=== PATIENT | female | born 1970 | race Caucasian/White ===

== ENCOUNTER 2025-03-29 06:51 | Outpatient (CLI) | payer BC, SELFPAY ==
--- NOTE | ~2025-03-29 | XR_ITS ---
XR finger 5th LT min 2V Ordering provider: Elba Izquierdo MD History: . FELL X 5 DYS AGO, INJURY TO LT 5TH FINGER . Comparison: None. FINDINGS: BONES: Avulsion fracture at the base of the middle phalanx of the little finger seen anteriorly. No o ther fractures seen. JOINT SPACES: Normal. SOFT TISSUES: Normal. IMPRESSION: Avulsion fracture at the base of the middle phalanx anteriorly. Reviewed, dictated and finalized at location A.
== END 2025-03-29 06:52 | disposition home or self-care (01) ==
PROVIDERS: PCP Urology; Visit Provider Plastic Surgery
DX: S62.627A Displaced fracture of middle phalanx of left little finger, initial encounter for closed fracture (principal); X58.XXXA Exposure to other specified factors, initial encounter
CPT/HCPCS: 73140

== ENCOUNTER 2025-09-08 22:26 | Emergency (ER) | payer BC, SELFPAY ==
--- NOTE | ~2025-09-08 | XR_ITS ---
Examination: XR ankle LT min 3V Clinical History: fall Comparison: None Technique: 3 views left ankle Findings/impression: 1. Fracture lateral malleolus at level of ankle mortise. 2. Avulsion fracture medial malleolus. 3. Ankle mortise appears preserved. 4. Calcaneal enthesophyte plantar fascia insertion site. Reviewed, dictated and finalized at location R. ECTION LIEUTENANT
--- OUTSIDE RECORDS SUMMARY | 2025-09-08 22:29 | XMS_ITS | Clinical Summary ---
Author Organization [facility] al Address [address] [place] [address] Care Team Providers Care Scientific Investigator Name Role Phone Cely Mcgraw MD Primary Care Provid er Allergies Active Allergy Reactions Criticality Noted Date Comments Doxycycline Rash,Urticaria Medium 12/21/2018 Latex Itching Low 07/16/2010 Medications FLUoxetine (PROzac) 20 mg tablet 3 Active albuterol HFA (PROVENTIL HFA,VENTOLIN HFA,PROAIR HFA) 90 mcg/actuation inhaler Inhale 2 puffs every 6 (six) hours as needed 9 Active triamcinolone (KENALOG) 0.1 % ointment APPLY TOPICALLY TO THE AFFECTED AREA TWICE DAILY 3 Active phentermine (ADIPEX-P) 37.5 mg tablet 0 3 Active Active Problems Problem Noted Date Diagnosed Date NIYA (obstructive sleep apnea) 03/12/2023 Perimenopausal 03/12/2023 Dental infection 11/06/2021 Elevated BP without diagnosis of hypertension Mild episode of recurrent major depressive disor deshawn 08/11/2019 Anxiety state 04/14/2017 Obesity (BMI 30.0-34.9) 04/14/2017 Overview (03/12/2023): Dentofacial anomalies, including malocclusion Immunizations Immunization Administration Dates Next Due Influenza, Quadrivalent, Spl it, Preservative Free, Intramuscular 08/19/2020,08/11/2019 Influenza, Trivalent, Preservative Free, Intramu scular 08/09/2016 Surgical History Surgery Date Site/Laterality Comments RI LAPS ABD PRTM&OMENTUM DX W/WO SPEC BR/WA SPX Laparoscopy (Diagnostic) - (Added by TW Conv) RI TONSILLECTOMY & ADENOIDEC LORENZO <AGE 12 Tonsillectomy With Adenoidectomy - (Added by TW Conv) MANDIBLE SURGERY Jaw Surgery - (Added by TW Conv) Social History Tobacco Use Types Packs/Day Years Used Date Smoking Tobacco: Never Personal Safety Answer Date Recorded Getting School Help Needed Not on file 12/17 Comments Unknown Sex and Gender Information Value Date Recorded Sex Assigned at Not on file Legal Sex Female 4:35 PM [employer] Gender Identity Not on file Sexual Orientation Not on file Last Filed Vital Signs Vital Sign Reading Time Taken Comments Blood Pressure 126/84 03/12/2023 7:05 AM CDT Pulse 98 03/12/2023 7:05 AM CDT Temperature 36.6 C (97.8 F) 03/12/2023 7:05 AM CDT Respiratory Rate 16 03/12/2023 7:05 AM CDT Oxygen Saturation 97% 03/12/2023 7:05 AM CDT Inhaled Oxygen Concentration - - Weight 117.9 kg (260 lb) 03/12/2023 7:05 AM CDT Height 167.7 cm (5' 6.02) 03/12/2023 7:05 AM CD T Body Mass Index 41.93 03/12/2023 7:05 AM CDT Plan of Treatment Health Maintenance Due Date Last Done Comments Cervical Cancer Screening 1970 Colon Cancer Screening-Colonoscopy 1970 Depression Screening 1970 Hepatitis C Screening 1970 DTaP/Tdap/Td Vaccine (1 - Tdap) 1981 Hepatitis B Screening 1988 Regular Well Visit/Exam 18-64 1988 Breast Cancer Screening-Mammogram 08/10/2018 08/10/2017, 06/19/2016, 11/09/2014, Additional history exists Zoster Vaccine (1 of 2) 2020 Influenza Vaccine (#1) 2025 0, 08/11/2019, 08/09/2016 Pneumococcal vaccine <65 Aged Out No longer eligible based on patient's age to complete this topic Procedures Procedure Name Priority Date/Time Associated Diagnosis Comments MAMMOGRAPHY, TOMOGRAPHY, BILATERAL Routine 08/10/2017 3:16 PM [employer] NURSE from Last 3 Months or Most Recently Relevant to Health Maintenance Results * MAMMOGRAPHY, TOMOGRAPHY, BILATERAL (08/10/2017 3:16 PM [employer] NURSE) Anatomical Region Laterality Modality Bilateral Mammography 08/10/2017 3:16 PM [employer] NURSE Narrative 08/12/2017 6:28 PM [employer] NURSE KENA ALSTON M.D. FINAL REPORT ACC# Date Time Exam [id number] Aug 10, 2017 09:16:00 [facility] [id number] Bilat scr w/qamar Technologist(s): Rosaline Pierre; ; EXAMINATION: Mammogram Technique: Bilateral Digital Breast Tomosynthesis, Bilateral C-view 2D Screening mammogram. Views obtained: bilateral craniocaudal and bilateral mediolateral oblique. Computer Aided Detection was performed. Mammogram Findings: The present examination has been compared to prior imaging studies performed at [facility] on 09/29/2013, and at [facility] [address] on 11/09/2014 and 06/19/2016. The breasts are almost entirely fatty. There is no suspicious abnormality in either breast. IMPRESSION: Annual screening mammography is recommended. OVERALL FINAL ASSESSMENT: BI-RADS CATEGORY 1: Negative. Requested By: SAMY VELASCO M.D. Dictated By: KENA ALSTON M.D. on Aug 12 2017 12:28P This document has been electronically signed by: KENA ALSTON M.D. on Aug 12 2017 12:28P [id number] ALSTON M.D. FINAL REPORT Attending: SAMY VELASCO Requesting: SAMY VELASCO Requesting Fax: Attending Fax: Attending ID: [id number] Requesting ID: [id number] Report To 1 ID: [id number] Report To 1 Name: , Report To 1 FAX: NextGen Order #: Procedure Note Miscellaneous, Not In File - 08/12/2017 KENA ALSTON M.D. FINAL REPORT ACC# Date Time Exam [id number] Aug 10, 2017 09:16:00 [facility] [id number] Bilat scr w/qamar Technologist(s): Rosaline Pierre; ; EXAMINATION: Mammogram Technique: Bilateral Digital Breast Tomosynthesis, Bilateral C-view 2D Screening mammogram. Views obtained: bilateral craniocaudal and bilateral mediolateral oblique. Computer Aided Detection was performed. Mammogram Findings: The present examination has been compared to prior imaging studies performed at [facility] on 09/29/2013, and at [facility] [address] on 11/09/2014 and 06/19/2016. The breasts are almost entirely fatty. There is no suspicious abnormality in either breast. IMPRESSION: Annual screening mammography is recommended. OVERALL FINAL ASSESSMENT: BI-RADS CATEGORY 1: Negative. Requested By: SAMY VELASCO M.D. Dictated By: KENA ALSTON M.D. on Aug 12 2017 12:28P This document has been electronically signed by: KENA ALSTON M.D. on Aug 12 2017 12:28P [id number] ALSTON M.D. FINAL REPORT Attending: SAMY VELASCO Requesting: SAMY VELASCO Requesting Fax: Attending Fax: Attending ID: [id number] Requesting ID: [id number] Report To 1 ID: [id number] Report To 1 Name: , Report To 1 FAX: NextGen Order #: Samy Velasco MD IMG MAMMO PROCEDURES Final Result from Last 3 Months or Most Recently Relevant to Health Maintenance Insurance [facility] CHO[facility] PL[facility] Care Teams Scientific Investigator Relationship Specialty Start Date End Date Cely Mcgraw MD [address] [facility] [address] [place] [address] PCP - General Internal Medicine 03/12/23
--- OUTSIDE RECORDS SUMMARY | 2025-09-08 22:29 | XMS_ITS | Clinical Summary ---
Author Organization [facility] Address [address] [place] [address] Care Team Providers Care Twisting Frame Changer Name Role Phone Unavailable Primary Care Provider Unavailabl e Source Comments [facility],non-owned Affiliates and Associated Physician Practices is amultiple site organization consisting of ambulatory clinics and hospital sitesin [place], [place], [place] and [place]. This disclosure is being madepursuant to the Care Everywhere program and may not contain all information available regarding this patient. Last updated 18.[facility] BzzAgent Allergies Active Allergy Reactions Criticality Noted Date Comments Doxycycline Urticaria Medium 12/21/2018 Medications * Be aware that medications may not be up to date on this document. Alwaysverify current medications with the patient. albuterol HFA (PROVENTIL;VENT RADHA;PROAIR) 108 (90 BASE) MCG/ACT inhaler Inhale 2 puffs by mouth every 6 hours as needed for Shortness of Breath or Cough 1 Inhaler 9 Active benzonatate (TESSALON) 200 MG capsule Take 1 capsule by mouth 3 times daily as needed for Cough 30 capsule 9 Active Social History Tobacco Use Types Packs/Day Years Used Date Smoking Tobacco: Never Assessed Comments No Sex and Gender Information Value Date Recorded Sex Assigned at Not on file Legal Sex Female 11:20 AM CDT Gender Identity Not on file Sexual Orientation Not on file Last Filed Vital Signs Vital Sign Reading Time Taken Comments Blood Pressure 110/78 12/21/2018 3:42 PM CDT Pulse - - Temperature 37.4 C (99.3 F) 12/21/2018 3:42 PM CDT Respiratory Rate 18 12/21/2018 3:42 PM CDT Oxygen Saturation 95% 12/21/2018 3:42 PM CDT Inhaled Oxygen Concentration - - Weight 88.5 kg (195 lb) 12/21/2018 3:42 PM CDT Height 170.2 cm (5' 7) 12/21/2018 3:42 PM CDT Body Mass Index 30.54 12/21/2018 3:42 PM CDT Plan of Treatment Health Maintenance Due Date Last Done Comments COLOGUARD (AGES 45-75) - COL ON CA SCREENING 1970 COLON MONITORING 1970 COLONOSCOPY - COLON CA SCREENING 1970 CT COLONOGRAPHY - COLON CA SCREENING 1970 Colorectal Cancer Screening 1970 FIT - COLON CA SCREENING 1970 FLEX SIG - COLON CA SCREENING 1970 LIPID TESTING 1970 MAMMOGRAM 1970 HIV SCREENING 1985 HEPATITIS C SCREENING 11/19/1988 DTAP/TDAP/TD VACCINES (1 - Tdap) 1989 HEPATITIS B VACCINE (1 of 3 - 19+ 3-dose series) 1989 SCREENING FOR DIABETES 12/21/2018 PNEUMOCOCCAL VACCINE 50+ (1 of 1 - PCV) 2020 ZOSTER VACCINE (1 of 2) 2020 DEPRESSION SCREENING 10/04/2024 COVID-19 VACCINE (1 - 2024-2 6 season) 2025 INFLUENZA VACCINE (#1) 2025 HIB VACCINE Aged Out No longer eligi ble based on patient's age to complete this topic HPV VACCINE Aged Out No longer eligi ble based on patient's age to complete this topic MENINGOCOCCAL (Group B) VACC INE SHARED DECISION-MAKING Aged Out No longer eligibl e based on patient's age to complete this topic MENINGOCOCCAL GROUPS A/C/Y/W VACCINE Aged Out No longer eligible b ased on patient's age to complete [place] [address] VASQUEZ
--- OUTSIDE RECORDS SUMMARY | 2025-09-08 22:30 | XMS_ITS | Patient Health Record ---
Author Organization [facility] Address [address] [place], [place] [id number] Care Team Providers Care Asp Net C Developer Name Role Phone Dave Alexander Unavailable Unavailable Reason For Referral No Information Social History Social History Additional Details Category Social Info Options Details Migrated Social History Migrated Social History Smoking Status : Never smoked , History of tobacco use : , Alcohol intake : Plan Of Treatment No Information Insurance Providers Payer Name Payer Address Payer Phone Subscriber Number Group Number Insured Name Patient Relationship to Insured Coverage Start Date Coverage End Date R [place] / [employer] [address] [facility] Jackman [id number] KRYSTYNA CAO Self - patient is the insured
[2025-09-08 22:39] VITALS: BP 150/59; PULSE 79; RESP 18; TEMP 36.6; O2SAT 99
[2025-09-09 02:15] VITALS: BP 130/70; PULSE 74; RESP 18; TEMP 36.7; O2SAT 100
--- NOTE | 2025-09-09 02:44 | ED_ITS ---
HPI - Extremity Injury (Lower) General Chief Complaint: Extremity Injury, Lower Stated Complaint: L ankle pain from fall Time Seen by Provider: 09/09/25 02:36 Source: patient and family Mode of arrival: ambulatory Limitations: no limitations History of Present Illness HPI Narrative: Patient is a 54-year-old female presents to the emergency department complaining of left ankle pain after fall that occurred Wednesday morning. Denies hitting head having loss of consciousness. No she is only having pain to her left leg at the ankle. Patient notes that she slipped on ice and her left leg behind her she is unsure how she hurt her ankle but been having a lot of pain with any weight-bearing. Denies any focal weakness or numbness. Admits to bruising. Has crutches at home from her son having an injury and has been using them. Took an Aleve for the pain. Notes that it is overall well controlled as long she is not bearing any weight on it. Related Data Allergies Allergy/AdvReac Type Severity Reaction Status Date / Time doxycycline Allergy Intermediate Hives Verified 09/09/25 02:18 Review of Systems Review of Systems: A 10 system review of systems was completed on the patient and is negative except for what is stated in the HPI. Nursing and ancillary documentation was reviewed. [facility] Social History Social History Smoking status: Never smoker Exam Narrative: CONST: No acute distress. Well nourished. HENMT: Head is normocephalic and atraumatic. EYES: No scleral icterus. NECK: No meningeal signs. RESP: Able to speak in full sentences. Normal respiratory effort. CARDIO: 2+ DP pulses bilaterally. GI: Nondistended. SKIN: No rashes or lesions noted on exposed skin. NEURO: Oriented x3. Moves all extremities. EXTREM/MSK/BACK: No pedal edema. Bruising and swelling and tenderness to palpation of the left ankle lateral malleolus. Sensation intact to light touch throughout the left lower extremity. No overt laxity of the left ankle. Clark test is negative. Compartments are soft throughout the left leg. Patient is able to wiggle all her toes. PSYCH: Normal affect. Course Vital Signs Vital signs: Vital Signs Temperature 97.9 F 09/08/25 22:39 Pulse Rate 79 09/08/25 22:39 Respiratory Rate 18 09/08/25 22:39 Blood Pressure 150/59 H 09/08/25 22:39 Pulse Oximetry 99 09/08/25 22:39 Oxygen Delivery Room Air 09/08/25 22:39 Temperature 98.0 F 09/09/25 02:15 Pulse Rate 73 09/09/25 03:27 Respiratory Rate 18 09/09/25 03:27 Blood Pressure 158/83 H 09/09/25 03:27 Pulse Oximetry 98 09/09/25 03:27 Oxygen Delivery Room Air 09/09/25 02:15 Procedures Orthopedic Splinting/Casting Injury #1: Splinting/Casting Date: 09/09/25 Splinting/Casting Time: 03:00 Side: left Lower Extremity Injury Location: ankle Lower Extremity Immobilizer: posterior splint and stirrup splint Splint: prefabricated Pre-Procedure Neuro Vascular Exam: normal Post-Procedure Neuro Vascular Exam: normal Other Orthopedic Equipment: crutches MDM MDM Narrative Medical decision making narrative: Patient presents with the above complaint. Initial vitals are remarkable for no significant abnormalities. Physical examination as noted above. Plan discussed: Left ankle x-ray, ice pack, extremity elevation, continuous cardiac monitoring, continuous pulse oximetry. Left ankle x-ray preliminary findings radiology interpretation is lateral malleolus fracture. Possible avulsion fracture of the medial malleolus. Patient was reassessed at the bedside. No changes in physical exam. Patient is in no acute distress. Patient splinted with a posterior short-leg and stirrup, patient has crutches, capillary refill is less than 2 seconds in all distal digits, sensation intact in all distal digits, patient is able to wiggle all her toes.The patient has remained stable throughout the entire ED visit. Counseled patient regarding diagnostic results and potential diagnosis. Anticipatory guidance provided. Patient instructed to follow up with Podiatry in 5 days. Patient counseled on: false reassurance from an emergency department evaluation; no current evidence of a medical emergency; return immediately for any new, recurrent, worsening, concerning, or refractory symptoms. Medications discussed with patient. Additional verbal and printed discharge instructions were given and discussed with the patient. Patient verbally acknowledges understanding of condition and discharge instructions. All questions were answered to the patient's satisfaction. Patient is in agreement with the plan of care. The patient is stable for discharge and was discharged without incident. Differential Diagnosis Differential Diagnosis: Fracture, contusion, sprain, strain, other acute traumatic injuries. Discharge Plan Discharge Clinical Impression: Ankle fracture Qualifiers: Encounter type: initial encounter Fracture type: closed Laterality: left Qualified Code(s): S82.892A - Other fracture of left lower leg, initial encounter for closed fracture Patient Disposition: Home Condition: Stable Instructions: Antibiotic Form, Ankle Fracture (ED), Crutch Instructions (ED), Splint Care (ED), P.R.I.C.E. Treatment (ED), Non Weight Bearing Activity (ED) Additional Instructions: Follow-up with Podiatry in 5 days, take Tylenol or Motrin as needed for any discomfort, keep your left leg elevated above your heart to help with swelling, use the crutches as you have been and nonweightbearing on your left leg. Patient Language: [place] Citizen Follow-up/Referrals: Brandon Cabral Jr., NOEL [Physician, Podiatry] - 09/13/25 Tayler Aguilar DPM [Physician, Podiatry] - 09/13/25 Cely Mcgraw MD [Primary Care Provider, Urology] Time of Disposition: 02:51
[2025-09-09 03:27] VITALS: BP 158/83; PULSE 73; RESP 18; O2SAT 98
== END 2025-09-09 03:36 | disposition home or self-care (01) ==
LOC: ANHED 09-09 02:55
PROVIDERS: Emergency Provider Student in an Organized Health Care Education/Training Program; PCP Urology
DX: S82.842A Displaced bimalleolar fracture of left lower leg, initial encounter for closed fracture (principal); W00.0XXA Fall on same level due to ice and snow, initial encounter
CPT/HCPCS: 29515; 73610; 99284

== ENCOUNTER 2025-09-13 21:28 | Emergency (ER) | payer SELFPAY ==
--- NOTE | ~2025-09-13 | XR_ITS ---
EXAMINATION: XR tibia fibula LT 2V DATE: 09/14/2025 01:35 INDICATION: Leg pain TECHNIQUE: September 08 were obtained. COMPARISON: None. FINDINGS: Mildly displaced spiral fracture distal fibula and possible avulsion fracture medial malleolus unchanged; there is increased lateral subluxation of the talus with the tibiotalar articulation on the frontal view measuring approximate 8 mm. No new fracture seen. IMPRESSION: 1. Tibiotalar subluxation with approximately 8 mm of talar displacement. 2. Distal fibular fracture and possible medial malleolus fracture not clearly changed. Reviewed, dictated and finalized at location A. UP EDITOR IMPRESSION: 1. Tibiotalar subluxation with approximately 8 mm of talar displacement. 2. Distal fibular fracture and possible medial malleolus fracture not clearly c hanged.
--- OUTSIDE RECORDS SUMMARY | 2025-09-13 21:30 | XMS_ITS | Patient Health Record ---
Author Organization [facility] Address [address] [place], [place] [id number] Care Team Providers Care Electronic Imaging System Operator Name Role Phone Dave Alexander Unavailable Unavailable [...] Coverage Start Date Coverage End Date R [place] / [employer] [address] [facility] Jackman [id number] KRYSTYNA CAO Self - patient is the insured
--- OUTSIDE RECORDS SUMMARY | 2025-09-13 21:30 | XMS_ITS | Clinical Summary ---
Author Organization [facility] Address [address] [place] [address] Phone Care Team Providers Care Emergency Medical Service Manager Name Role Phone Cely Mcgraw MD Primary Care Provid er Allergies Active Allergy Reactions Criticality Noted Date Comments Doxycycline Rash Medium 12/21/2018 Latex Itching Low 07/16/2010 Medications cpap medical deviceIndicati ons:NIYA (obstructive sleep apnea) APAP @ 5-15 cwp with heated humidifier. Length of need:99 months; fit for mask with headgear. Mask/Headgear as needed every 3- 6 months; 1 cushion as needed every 3-6 months; Tubing heated, 1 as needed every 6 months, water chamber 1 as needed every 6 months, chin strap 1 as needed every 6 months, filters disposable, 2 as needed every 3- 6 months, filters reusable 1 every 6 months. 1 Each 2 Active CPAP / BIPAP suppliesIndica tions:NIYA on CPAP CPAP Mask fit to comfort, Refit if needed, All associated CPAP Supplies as needed Length of need: 99 months DME [facility] 1 Each 3 Active CPAP / BIPAP suppliesIndica tions:NIYA on CPAP Length of need: 99 months Mask Type: nasal pillow with headgear every 6 months, mask only every 3 months,1 cushions per month. Tubing: heated 1 every 3 months, water chamber 1 every 6 months, chin strap 1 every 6 months, filters disposable 2 per month, filters reusable 1 per 6 months. 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 Take with vitamin C to increase absorption. 30 Tablet 2 5 Active semaglutide, weight loss, (WEGOVY) 1 mg/0.5 mL Pen Injector Inject 0.5 mL (1 mg) by subcutaneous injection every 7 days. 2 mL 2 5 Active FLUoxetine (PROzac) 20 mg tabletIndicati ons:Anxiety state,Mild episode of recurrent major depressive disorder Take 2 Tablets (40 mg) by mouth daily. 180 Tablet 5 Active hydrOXYzine HCL (ATARAX) 25 mg tabletIndicati ons:Anxiety state Take 1 Tablet (25 mg) by mouth 2 times daily as needed for Anxiety. 30 Tablet 5 Active FLUoxetine (PROzac) 20 mg tabletIndicati ons:Anxiety state,Mild episode of recurrent major depressive disorder Take 1 Tablet (20 mg) by mouth daily. 30 Tablet 3 5 025 Discontin ued(Reord er) Active Problems Patient Care Coordination No te Formatting of this note migh t be different from the original. DME: [facility] FOR CPAP: Airsense 10;sd card Problem Noted Date Diagnosed Date FOSTER (dyspnea on exertion) 08/03/2024 Exertional chest pain 08/03/2024 Fam hx-ischem heart disease 08/03/2024 Dental infection 11/06/2021 Elevated BP without diagnosis of hypertension Mild episode of recurrent major depressive disor deshawn 08/11/2019 Anxiety state 04/14/2017 Dentofacial anomalies, including malocclusion NIYA (obstructive sleep apnea) Resolved Problems Problem Noted Date Diagnosed Date Resolved Date Acute appendicitis with localized peritonitis 06/06/20 18 08/11/2019 Obesity (BMI 30.0-34.9) 04/14/201705/05 GERD without esophagitis 04/14/201705/2019 Encounters Date Type Department Care Team Description 08/28/2025 Orders Only [facility] Internal Medicine [facility] [address] [facility] [address] [address] Cely Mcgraw MD Anxiety state; Mild episode of recurrent major depressive disorder 08/21/2025 External Device Data [facility] ABSTRACTION Provider, Abstract 08/08/2025 External Device Data [facility] ABSTRACTION Provider, Abstract 08/01/2025 External Device Data [facility] ABSTRACTION Provider, Abstract 07/17/2025 External Device Data ST[facility] ABSTRACTION Provider, Abstract from Last 3 Months Immunizations Immunization Administration Dates Next Due (ADACEL/BOOSTRIX)(10 YR UP) TDAP VACCINE, 0.5ML, IM 05/10/2024 INFLUENZA VACCINE QUADRIVALENT 6 MOS UP PF IM ,08/11/2019 Influenza Seasonal Unspecified Formulation PF IM 08/09/2016 Family History Medical History Relation Name Comments COPD Father Simon Leos Emphysema Father Simon Leos Other Father Simon Leos NIYA; used BPAP Respiratory Disease Father Simon Leos smoker Heart Disease Maternal Grandfather Fan [place] Hypertension Maternal Grandfather Fan [place] Heart Disease Maternal Grandmother Leonela [place] Hypertension Maternal Grandmother Leonela [place] Cancer Mother Grace Lucio lung Depression Mother Grace Lucio Hypertension Mother Grace Lucio Breast Cancer Paternal Grandmother Gayathri Leos Colon Cancer Neg Hx Diabetes Neg Hx Relation Name Status Comments Father Simon Leos Maternal Grandfather Fan [place] Maternal Grandmother Leonela [place] Mother Grace Lucio Alive Paternal Grandmother Gayathri Leos Social History Tobacco Use Types Packs/Day Years Used Date Smoking Tobacco: Former Cigarettes 0 Q uit: 05/21/1986 Smokeless Tobacco: Never Tobacco Cessation:Counseling Given: Not Answered Alcohol Use Standard Drinks/Week Comments Yes 0 (1 standard drink = 0.6 oz pur e alcohol) SOCIALLY Feeling Safe Answer Date Recorded Are you in a relationship wi th someone who hurts you emotionally and/or physically? No 08/29/2024 Comments No Sex and Gender Information Value Date Recorded Sex Assigned at Not on file Legal Sex Female 5:55 AM APPEALS AND GENERALIST CLERK Gender Identity Not on file Sexual Orientation Not on file Last Filed Vital Signs Vital Sign Reading Time Taken Comments Blood Pressure 132/70 05/30/2025 3:37 PM CDT Pulse 85 05/30/2025 3:37 PM CDT Temperature 36.6 C (97.8 F) 05/30/2025 3:37 PM CDT Respiratory Rate 16 08/29/2024 10:09 AM APPEALS AND GENERALIST CLERK Oxygen Saturation 99% 05/30/2025 3:37 PM CDT Inhaled Oxygen Concentration - - Weight 112.9 kg (249 lb) 05/30/2025 3:37 PM CDT Height 170.2 cm (5' 7) 05/30/2025 3:37 PM CDT Body Mass Index 39 05/30/2025 3:37 PM CDT Plan of Treatment Health Maintenance Due Date Last Done Comments HEPATITIS B VACCINES (1 of 3 - 19+ 3-dose series) 1989 HPV/Cotest (21-29) 1991 CERVICAL CANCER SCREENING 2000 HPV/Cotest (30-65) 2000 PAP SMEAR 2000 FIT-DNA Q 3 years 2015 FIT/FOBT Q 1 year 2015 Flex Sig/CT Colonography Q 5 years 2015 ZOSTER VACCINE (1 of 2) 2020 INFLUENZA VACCINE (#1) 2025 , 08/11/2019, 08/09/2016 BREAST CANCER SCREENING 05/30/2026 05/30/20, 05/31/2024, 03/03/2023, Additional history exists Pre-Diabetes and Diabetes Screening 05/10/2027 05/10/2024 COLORECTAL SCREENING 08/29/2031 08/29/2024, 08/29/2024, 01/31/2021, Additional history exists Colorectal Cancer Screening 08/29/2031 DTAP/TDAP/TD VACCINES (2 - T d or Tdap) 05/10/2034 05/10/2024 Preventative Visit- Commercial Completed 0 05/30/2025, 05/10/2024, 08/19/2020, Additional history exists Medical Devices Implanted Type Area Bilingual Interpreter Device Identifier Shelf Expiration Date Model / Serial / Lot Log [id number] - Emir Brand Set - 1 - Plate Lng 4 H [id number] Implanted:Qty: 2 on 07/23/2010 at [facility] Plate Mandible [employer] Description:Load # 54 Log [id number] - Emir Brand Set - 1 - Screw Mini Crssdr 2.0x13mm [id number] Implanted:Qty: 1 on 07/23/2010 at [facility] Screw Bilateral: Mandible [employer] [id number] / / Description:Load 54Sterilize d Jul Log [id number] - Emir Brand Set - 1 - Screw Mini Crssdr 2.0x7mm [id number] Implanted:Qty: 4 on 07/23/2010 at [facility] Screw [employer] [id number]- 1 / / Log [id number] - Emir Brand Set - 1 - Screw Mini Crssdr 2.0x11mm [id number] Implanted:Qty: 5 on 07/23/2010 at [facility] Screw [employer] 25-672-11- 1 / / Log [id number] - Emir Brand Set - 1 - Screw Mini Crssdr 2.0x11mm [id number] Implanted:Qty: 7 on 06/24/2011 at [facility] Screw Bilateral: Mandible [employer] 25-672-11 / / 54 LOAD # Log [id number] - Emir Brand Set - 1 - Screw Mini Crssdr 2.0x13mm [id number] Implanted:Qty: 1 on 06/24/2011 at [facility] Screw Bilateral: Mandible [employer] [id number] / / 54 LOAD # Explanted Type Area Bilingual Interpreter Device Identifier Shelf Expiration Date Model / Serial / Lot Plate Explanted:Qty: 2 on 06/24/2011 at [facility] Plate Screw Explanted:Qty: 10 on 06/24/2011 at [facility] Screw Procedures Procedure Name Priority Date/Time Associated Diagnosis Comments MAMMO 3D ADELITA SCREEN BILAT W OR WO CAD Routine 05/30/2025 4:26 PM CDT Encounter for screening mammogram for breast cancer COLONOSCOPY REPORT 08/29/2024 9: 49 AM APPEALS AND GENERALIST CLERK HEMOGLOBIN A1C Routine 05/10/2024 4:06 PM CDT Encounter for routine adult health examination without abnormal findings from Last 3 Months or Most Recently Relevant to Health Maintenance Results * MAMMO 3D ADELITA SCREEN BILAT W OR WO CAD (05/30/2025 4:26 PM CDT) Anatomical Region Laterality Modality Breast Bilateral Mammography 05/30/2025 4:26 PM CDT Impressions 05/30/2025 4:37 PM CDT IMPRESSION: No suspicious findings to suggest malignancy in either breast. Annual mammography is recommended. OVERALL FINAL ASSESSMENT: BI-RADS CATEGORY 1: Negative. DICTATION LOCATION: [facility] Narrative 05/30/2025 4:37 PM CDT BILATERAL SCREENING DIGITAL MAMMOGRAM WITH 3D TOMOSYNTHESIS AND CAD DATE: 05/30/2025 4:26 PM HISTORY: Routine screening. TECHNIQUE: Full-field digital craniocaudal and mediolateral oblique projections of both breasts were obtained. Low-dose full-field digital breast tomosynthesis examination was performed with 2D and 3D acquisitions. Examination is read in conjunction with computer aided detection. COMPARISON: Prior available breast imaging exams. BREAST COMPOSITION: The breasts are almost entirely fatty FINDINGS: No suspicious mass, suspicious microcalcifications, or architectural distortion is identified in either breast. Computer aided detection was used in the interpretation of this examination. us Cely Mcgraw MD MAMMO ORDERABLES Fin al Result * COLONOSCOPY REPORT (08/29/2024 9:49 AM APPEALS AND GENERALIST CLERK) Narrative Procedure Note Joel Thomas, - 08/29/2024 9:49 AM CST [facility] Endoscopy Patient Name: Krystyna Cao Procedure Date: 08/29/2024 Date of : 1970 Attending MD: Joel Thomas MD, Procedure: Colonoscopy Indications: High risk colon cancer surveillance: Personal history of multiple (3 or more) adenomas, Last colonoscopy: January 2021 Providers: Joel Thomas MD Referring MD: Cely Mcgraw MD Medicines: Monitored Anesthesia Care Complications: No immediate complications. Procedure: Informed consent was obtained for the procedure, including moderate sedation after risks were discussed. Based on the pre-procedure assessment, including review of the patient's medical history, medications, allergies, and review of systems, the patient was deemed to be an appropriate candidate for sedation. A timeout was performed. Continuous ECG monitoring, pulse oximetry, blood pressure monitoring, and direct observation were performed. The Colonoscope was introduced through the anus and advanced to the terminal ileum. The colonoscopy was performed without difficulty. The patient tolerated the procedure well. The quality of the bowel preparation was good. Anatomical landmarks were photographed. Estimated Blood Loss: Estimated blood loss was minimal. Findings: The perianal examination was normal. A 5 mm polyp was found in the transverse colon. The polyp was sessile. The polyp was removed with a cold snare. Resection and retrieval were complete. Estimated blood loss was minimal. Retroflexion in the right colon was performed. The terminal ileum appeared normal. Non-bleeding hemorrhoids were found during retroflexion. Impression: - One 5 mm polyp in the transverse colon, removed with a cold snare. Resected and retrieved. - The examined portion of the ileum was normal. - Non-bleeding hemorrhoids. Recommendation: - Await pathology results. - Repeat colonoscopy in 7 years for surveillance based on pathology results. Joel Thomas MD 08/29/2024 9:49:22 AM This report has been signed electronically. Number of Addenda: [address]; [place] [address] Joel Thomas DO GI PROCEDURE ORDERABLES Fin al Result * (ABNORMAL) HEMOGLOBIN A1C (05/10/2024 4:06 PM CDT) HEMOGLOBIN A1C 5.8(H) <5.7 % of total Hgb [facility] [place] Comment: For someone without known diabetes, a hemoglobin A1c value between 5.7% and 6.4% is consistent with prediabetes and should be confirmed with a follow-up test. For someone with known diabetes, a value <7% indicates that their diabetes is well controlled. A1c targets should be individualized based on duration of diabetes, age, comorbid conditions, and other considerations. This assay result is consistent with an increased risk of diabetes. Currently, no consensus exists regarding use of hemoglobin A1c for diagnosis of diabetes for children. ESTIMATED AVERAGE GLUCOSE (MG/DL) 120 mg/dL [facility] [place] ESTIMATED AVERAGE GLUCOSE (MMOL/L) 6.6 mmol/L [facility] [place] Comment: This test was performed on the Domenica samia c503 platform. Effective 12/20/23, a change in test platforms from the Rain Travel Professional to the Domenica samia c503 may have shifted HbA1c results compared to historical results. Based on laboratory validation testing conducted at [facility], the Domenica platform relative to the Rain platform had an average increase in HbA1c value of < or = 0.3%. This difference is within accepted variability established by the National Glycohemoglobin Standardization Program. Note that not all individuals will have had a shift in their results and direct comparisons between historical and current results for testing conducted on different platforms is not recommended. FASTING:NO FASTING: NO Test Performed at: [facility] [place] [address] [address] [place] [address] Marin Nuñez Blood 05/10/2024 4:06 PM CDT 05/10/2024 4:07 PM CDT Cely Mcgraw MD CHEMISTRY ORDERABLES Final Result [facility] [phone] [place] [address] [address] [place] [address] from Last 3 Months or Most Recently Relevant to Health Maintenance Insurance RX [employer] RX Member Subscriber Plan / Payer (Ef fective 2021-Present) Name:Krystyna Cao Relation to Subscriber:Self Name:Krystyna Cao Subscriber ID:Not on file Payer ID:Not on file Group ID:[facility] Type:RX Commercial Address: [place] [facility] [employer] OUT OF STATE Advance Directives For more information, please contact: [phone] * Full Code (Latest Code Status on File) Date Activated Date Inactivated Comments 08/29/2024 8:43 AM 08/29/2024 12:54 PM * Full Code Date Activated Date Inactivated Comments 11/06/2021 4:54 AM 11/07/2021 8:56 PM * Full Code Date Activated Date Inactivated Comments 01/31/2021 7:44 AM 01/31/2021 11:53 AM * Full Code Date Activated Date Inactivated Comments 06/06/2018 1:55 PM 06/08/2018 7:29 PM * Full Code Date Activated Date Inactivated Comments 06/06/2018 5:11 AM 06/06/2018 1:55 PM Care Teams Emergency Medical Service Manager Relationship Specialty Start Date End Date Cely Mcgraw MD [address] [facility] [address] [place] [id number] PCP - General Internal Medicine 08/11/19
--- OUTSIDE RECORDS SUMMARY | 2025-09-13 21:30 | XMS_ITS | Clinical Summary ---
Author Organization [facility] Address [address] [place] [address] Care Team Providers Care Treater Helper Name Role Phone Cely Mcgraw MD Primary [...] 08/09/2016 Surgical History Surgery Date Site/Laterality Comments CA LAPS ABD PRTM&OMENTUM DX W/WO SPEC BR/WA SPX Laparoscopy (Diagnostic) - (Added by TW Conv) CA TONSILLECTOMY & ADENOIDEC LORENZO <AGE 12 Tonsillectomy [...] on file Legal Sex Female 4:35 PM CRIMINAL RECORDS TECHNICIAN Gender Identity Not on file Sexual Orientation [...] MAMMOGRAPHY, TOMOGRAPHY, BILATERAL Routine 08/10/2017 3:16 PM CRIMINAL RECORDS TECHNICIAN from Last 3 Months or Most Recently Relevant to Health Maintenance Results * MAMMOGRAPHY, TOMOGRAPHY, BILATERAL (08/10/2017 3:16 PM CRIMINAL RECORDS TECHNICIAN) Anatomical Region Laterality Modality Bilateral Mammography 08/10/2017 3:16 PM CRIMINAL RECORDS TECHNICIAN Narrative 08/12/2017 6:28 PM CRIMINAL RECORDS TECHNICIAN KENA ALSTON M.D. FINAL REPORT ACC# Date Time Exam [id number] Aug 10, 2017 09:16:00 [facility] [id number] Bilat scr w/qamar Technologist(s): Rosaline Pierre; ; EXAMINATION: Mammogram Technique: Bilateral Digital Breast Tomosynthesis, Bilateral C-view 2D Screening mammogram. Views obtained: bilateral craniocaudal and bilateral mediolateral oblique. Computer Aided Detection was performed. Mammogram Findings: The present examination has been compared to prior imaging studies performed at [facility] on 09/29/2013, and at [facility] at [place] [address] on 11/09/2014 and 06/19/2016. The breasts are almost entirely fatty. There is no suspicious abnormality in either breast. IMPRESSION: Annual screening mammography is recommended. OVERALL FINAL ASSESSMENT: BI-RADS CATEGORY 1: Negative. Requested By: SAMY VELASCO M.D. Dictated By: KENA ALSTON M.D. on Aug 12 2017 12:28P This document has been electronically signed by: KENA ALSTON M.D. on Aug 12 2017 12:28P [id number] ALSTON M.D. FINAL REPORT Attending: SAMY VELASCO Requesting: SAMY VELASCO Requesting Fax: Attending Fax: Attending ID: [id number] Requesting ID: [id number] Report To 1 ID: [id number] Report To 1 Name: , Report To 1 FAX: NextGen Order #: Procedure Note Miscellaneous, Not In File - 08/12/2017 KENA ALSTON M.D. FINAL REPORT ACC# Date Time Exam [id number] Aug 10, 2017 09:16:00 [facility] [id number] Bilat scr w/qamar Technologist(s): Rosaline Pierre; ; EXAMINATION: Mammogram Technique: Bilateral Digital Breast Tomosynthesis, Bilateral C-view 2D Screening mammogram. Views obtained: bilateral craniocaudal and bilateral mediolateral oblique. Computer Aided Detection was performed. Mammogram Findings: The present examination has been compared to prior imaging studies performed at [facility] on 09/29/2013, and at [facility] at [place] [address] on 11/09/2014 and 06/19/2016. The breasts are almost entirely fatty. There is no suspicious abnormality in either breast. IMPRESSION: Annual screening mammography is recommended. OVERALL FINAL ASSESSMENT: BI-RADS CATEGORY 1: Negative. Requested By: SAMY VELASCO M.D. Dictated By: KENA ALSTON M.D. on Aug 12 2017 12:28P This document has been electronically signed by: KENA ALSTON M.D. on Aug 12 2017 12:28P [id number] ALSTON M.D. FINAL REPORT Attending: SAMY VELASCO Requesting: SAMY VELASCO Requesting Fax: Attending Fax: Attending ID: [id number] Requesting ID: [id number] Report To 1 ID: [id number] Report To 1 Name: , Report To 1 FAX: NextGen Order #: Samy Velasco MD IMG MAMMO PROCEDURES Final Result from Last 3 Months or Most Recently Relevant to Health Maintenance Insurance [facility] CHOICE PLUS Care Teams Treater Helper Relationship Specialty Start Date End Date Cely Mcgraw MD [address] [facility] [address] [place] [address] PCP - General Internal Medicine 03/12/23
[2025-09-13 21:33] VITALS: BP 148/76; PULSE 82; RESP 18; TEMP 36.6; O2SAT 99
--- NOTE | 2025-09-14 01:19 | ED_ITS ---
HPI - Extremity Injury (Lower) General Chief Complaint: Extremity Injury, Lower Stated Complaint: concern for compression syndrome Time Seen by Provider: 09/14/25 01:03 Source: patient Mode of arrival: wheelchair Limitations: no limitations History of Present Illness HPI Narrative: This is a 54-year-old female with no significant past medical history presents to the ED for left leg pain. Patient states that she suffered an ankle fracture earlier this week. She has been having issues with the temporary splint. She states that earlier today, she had some worsening swelling and tingling prompting her to come to the ED. she states that she has not been elevating it frequently as she has been working from home she does not elevate while working. She has also not been icing it. Related Data Allergies Allergy/AdvReac Type Severity Reaction Status Date / Time doxycycline Allergy Intermediate Hives Verified 09/09/25 02:18 Review of Systems Review of Systems: Gen.: Denies fevers or chills Eyes: Denies eye pain or visual change ENT: Denies congestion Respiratory: Denies shortness of breath or cough CV: Denies chest pain or palpitations GI: Denies abdominal pain nausea, emesis or diarrhea denies burning, urgency, frequency or hematuria Musculoskeletal: As per HPI Neuro: Denies numbness, tingling, weakness or focal weakness Skin: Denies rash Except as documented, all other systems reviewed and negative FORMERLY [facility], 1928–1983 Social History Social History Smoking status: Never smoker Exam Narrative: APPEARANCE: No acute distress, nontoxic, resting in bed EYES: EOMI HEENT: Normocephalic, atraumatic, OMM RESPIRATORY: No respiratory distress Clear to auscultation bilaterally with no rhonchi wheezing or rales. CARDIOVASCULAR: Regular rate and rhythm without murmurs rubs or gallops. ABDOMINAL: Soft, nontender, nondistended, no rebound or guarding MUSCULOSKELETAl: Ecchymosis and tenderness over the anterior aspect of the left lower leg. Distal pulses are 2+. Neurovascularly intact distally. NEURO: Awake and alert. Following commands, speech normal, no focal deficits SKIN:: Warm, dry. No rashes lesions or abrasions PSYCHIATRIC: Normal affect/mood, Course Vital Signs Vital signs: Vital Signs Temperature 97.9 F 09/13/25 21:33 Pulse Rate 82 09/13/25 21:33 Respiratory Rate 18 09/13/25 21:33 Blood Pressure 148/76 H 09/13/25 21:33 Pulse Oximetry 99 09/13/25 21:33 Oxygen Delivery Room Air 09/13/25 21:33 Temperature 97.6 F 09/14/25 02:50 Pulse Rate 71 09/14/25 02:50 Respiratory Rate 20 09/14/25 02:50 Blood Pressure 138/74 09/14/25 02:50 Pulse Oximetry 100 09/14/25 02:50 Oxygen Delivery Room Air 09/13/25 21:33 MDM MDM Narrative Medical decision making narrative: 54-year-old female Presenting for left lower leg pain. On initial evaluation patient was in no acute distress afebrile, hemodynamic stable. Differentials include but are not limited to: Splint problem, ankle fracture, compartment syndrome, DVT I personally reviewed the patient's images and interpret as follows: Left tibia/fibula x-ray: Stable appearing distal fibular fracture Suspect the patient's pain is due to worsening swelling and is likely due to her not elevating for affected leg. There is possibly an underlying DVT so she was advised to return to the hospital tomorrow for lower extremity Doppler. She was given [place]. She was advised follow-up with her PCP in the next week for re- evaluation. Patient was agreeable to this plan. Given strict return precautions. Differential Diagnosis Differential Diagnosis: Splint problem, ankle fracture, compartment syndrome, DVT Medical Records I have reviewed the following patient records and this information was taken into consideration when formulating the assessment and plan.: previous labs Imaging Data Radiologist's impression: Impressions Tibia/Fibula X-Ray 09/14/25 07:51 IMPRESSION: 1. Tibiotalar subluxation with approximately 8 mm of talar displacement. 2. Distal fibular fracture and possible medial malleolus fracture not clearly changed. Discharge Plan Discharge Clinical Impression: Left leg swelling Closed fibular fracture Qualifiers: Encounter type: initial encounter Fibula location: distal Fracture morphology: unspecified fracture morphology Laterality: left Qualified Code(s): S82.832A - Other fracture of upper and lower end of left fibula, initial encounter for closed fracture Patient Disposition: Home Condition: Stable Instructions: Antibiotic Form Additional Instructions: Take Tylenol and ibuprofen for your pain. You were also given a prescription for [place], take this as prescribed. Return to the hospital tomorrow to have year older sound done at 7:30 a.m.. Return to the ED for any new or worsening symptoms. Patient Language: Namibian Prescriptions: New hydrocodone-acetaminophen 5-325 mg tablet 1 tablet PO Q8H PRN (Reason: pain) Qty: 9 0RF Other Ambulatory Orders: US venous doppler LE LT (Routine) Timeframe: 1 Day Location: Determined by Patient Ordered By: Alfred Martinez Follow-up/Referrals: Cely Mcgraw MD [Primary Care Provider, Urology]
--- OUTSIDE RECORDS SUMMARY | 2025-09-14 02:10 | XMS_ITS | Clinical Summary ---
Author Organization [facility] Address [address] [place] [address] Care Team Providers Care Beef Selector Name Role Phone Cely Mcgraw MD Primary [...] 08/09/2016 Surgical History Surgery Date Site/Laterality Comments SD LAPS ABD PRTM&OMENTUM DX W/WO SPEC BR/WA SPX Laparoscopy (Diagnostic) - (Added by TW Conv) SD TONSILLECTOMY & ADENOIDEC LORENZO <AGE 12 Tonsillectomy [...] on file Legal Sex Female 4:35 PM DENTAL DIRECTOR Gender Identity Not on file Sexual Orientation [...] MAMMOGRAPHY, TOMOGRAPHY, BILATERAL Routine 08/10/2017 3:16 PM DENTAL DIRECTOR from Last 3 Months or Most Recently Relevant to Health Maintenance Results * MAMMOGRAPHY, TOMOGRAPHY, BILATERAL (08/10/2017 3:16 PM DENTAL DIRECTOR) Anatomical Region Laterality Modality Bilateral Mammography 08/10/2017 3:16 PM DENTAL DIRECTOR Narrative 08/12/2017 6:28 PM DENTAL DIRECTOR KENA ALSTON M.D. FINAL REPORT ACC# Date Time Exam [id number] Aug 10, 2017 09:16:00 [facility] [id number] Bilat scr w/qamar Technologist(s): Rosaline Pierre; ; EXAMINATION: Mammogram Technique: Bilateral Digital Breast Tomosynthesis, Bilateral C-view 2D Screening mammogram. Views obtained: bilateral craniocaudal and bilateral mediolateral oblique. Computer Aided Detection was performed. Mammogram Findings: The present examination has been compared to prior imaging studies performed at [facility] on 09/29/2013, and at [facility] at [place] [address] on 11/09/2014 and 06/19/2016. The breasts are almost entirely fatty. There is no suspicious abnormality in either breast. IMPRESSION: Annual screening mammography is recommended. OVERALL FINAL ASSESSMENT: BI-RADS CATEGORY 1: Negative. Requested By: SAMY VELASCO M.D. Dictated By: KENA ALSTON M.D. on Aug 12 2017 12:28P This document has been electronically signed by: KENA ALSTON M.D. on Aug 12 2017 12:28P [id number] ALSTON M.D. FINAL REPORT Attending: SAMY VELASCO Requesting: SAMY VELASCO Requesting Fax: Attending Fax: Attending ID: [id number] Requesting ID: [id number] Report To 1 ID: [id number] Report To 1 Name: , Report To 1 FAX: NextGen Order #: Procedure Note Miscellaneous, Not In File - 08/12/2017 KENA ALSTON M.D. FINAL REPORT ACC# Date Time Exam [id number] Aug 10, 2017 09:16:00 [facility] [id number] Bilat scr w/qamar Technologist(s): Rosaline Pierre; ; EXAMINATION: Mammogram Technique: Bilateral Digital Breast Tomosynthesis, Bilateral C-view 2D Screening mammogram. Views obtained: bilateral craniocaudal and bilateral mediolateral oblique. Computer Aided Detection was performed. Mammogram Findings: The present examination has been compared to prior imaging studies performed at [facility] on 09/29/2013, and at [facility] at [place] [address] on 11/09/2014 and 06/19/2016. The breasts are almost entirely fatty. There is no suspicious abnormality in either breast. IMPRESSION: Annual screening mammography is recommended. OVERALL FINAL ASSESSMENT: BI-RADS CATEGORY 1: Negative. Requested By: SAMY VELASCO M.D. Dictated By: KENA ALSTON M.D. on Aug 12 2017 12:28P This document has been electronically signed by: KENA ALSTON M.D. on Aug 12 2017 12:28P [id number] ALSTON M.D. FINAL REPORT Attending: SAMY VELASCO Requesting: SAMY VELASCO Requesting Fax: Attending Fax: Attending ID: [id number] Requesting ID: [id number] Report To 1 ID: [id number] Report To 1 Name: , Report To 1 FAX: NextGen Order #: Samy Velasco MD IMG MAMMO PROCEDURES Final Result from Last 3 Months or Most Recently Relevant to Health Maintenance Insurance [facility] CHOICE [facility] HMO/PPO Address: [place] [address] Care Teams Beef Selector Relationship Specialty Start Date End Date Cely Mcgraw MD [address] [facility] [address] [place] [address] PCP - General Internal Medicine 03/12/23
--- OUTSIDE RECORDS SUMMARY | 2025-09-14 02:10 | XMS_ITS | Clinical Summary ---
Author Organization [facility] Address [address] [place] [address] Phone Care Team Providers Care Performance Improvement Consultant Name Role Phone Cely Mcgraw MD Primary [...] needed Length of need: 99 months DME [facility] 1 Each 3 Active CPAP / [...] filters reusable 1 per 6 months. DME: [facility] 1 Each 5 Active ferrous sulfate 325 [...] t be different from the original. DME: [facility] FOR CPAP: Airsense 10;sd card Problem Noted [...] Department Care Team Description 08/28/2025 Orders Only [facility] Internal Medicine Medical [place] [address] [facility] [address] [address] Cely Mcgraw MD Anxiety state; [...] Maternal Grandfather Fan [place] Hypertension Maternal Grandfather aFn [place] Heart Disease Maternal Grandmother Leonela [place] Hypertension Maternal Grandmother Leonela [place] Cancer Mother Grace Lucio lung Depression Mother Grace Lucio Hypertension Mother Grace Lucio Breast Cancer Paternal Grandmother Gayathri Leos Colon Cancer Neg Hx Diabetes Neg Hx Relation Name Status Comments Father Simon Leos Maternal Grandfather Fan [place] Maternal Grandmother Leonela [place] Mother Grace Lucio [...] on file Legal Sex Female 5:55 AM TRANSMITTER OPERATOR Gender Identity Not on file Sexual Orientation Not on file Last Filed Vital Signs Vital Sign Reading Time Taken Comments Blood Pressure 132/70 05/30/2025 3:37 PM CDT Pulse 85 05/30/2025 3:37 PM CDT Temperature 36.6 C (97.8 F) 05/30/2025 3:37 PM CDT Respiratory Rate 16 08/29/2024 10:09 AM TRANSMITTER OPERATOR Oxygen Saturation 99% 05/30/2025 3:37 PM CDT [...] history exists Medical Devices Implanted Type Area Parts Counterperson Device Identifier Shelf Expiration Date Model / Serial / Lot Log [id number] - Emir Brand Set - 1 - Plate Lng 4 H 25-672-04 Implanted:Qty: 2 on 07/23/2010 at [facility] Plate Mandible [employer] Description:Load # 54 Log [id number] - Emir Brand Set - 1 - Screw Mini Crssdr 2.0x13mm 25-232-13 Implanted:Qty: 1 on 07/23/2010 at [facility] Screw Bilateral: Mandible [employer] 25-672-13 / / Description:Load 54Sterilize d Jul Log [id number] - Emir Brand Set - 1 - Screw Mini Crssdr 2.0x7mm 25-672-07-1 Implanted:Qty: 4 on 07/23/2010 at [facility] Screw [employer] 25-672-07- 1 / / Log [id number] - Emir Brand Set - 1 - Screw Mini Crssdr 2.0x11mm 25-672-11-1 Implanted:Qty: 5 on 07/23/2010 at [facility] Screw [employer] 25-672-11- 1 / / Log [id number] - Emir Brand Set - 1 - Screw Mini Crssdr 2.0x11mm 25-672-11 Implanted:Qty: 7 on 06/24/2011 at [facility] Screw Bilateral: Mandible [employer] 25-672-11 / / 54 LOAD # Log [id number] - Emir Brand Set - 1 - Screw Mini Crssdr 2.0x13mm 25-672-13 Implanted:Qty: 1 on 06/24/2011 at [facility] Screw Bilateral: Mandible [employer] 25-672-13 / / 54 LOAD # Explanted Type Area Parts Counterperson Device Identifier Shelf Expiration Date Model / Serial / Lot Plate Explanted:Qty: 2 on 06/24/2011 at [facility] Plate Screw Explanted:Qty: 10 on 06/24/2011 at [facility] Screw Procedures Procedure Name Priority Date/Time Associated Diagnosis Comments MAMMO 3D ADELITA SCREEN BILAT W OR WO CAD Routine 05/30/2025 4:26 PM CDT Encounter for screening mammogram for breast cancer COLONOSCOPY REPORT 08/29/2024 9: 49 AM TRANSMITTER OPERATOR HEMOGLOBIN A1C Routine 05/10/2024 4:06 PM CDT [...] ASSESSMENT: BI-RADS CATEGORY 1: Negative. DICTATION LOCATION: [facility] Narrative 05/30/2025 4:37 PM CDT BILATERAL SCREENING [...] Result * COLONOSCOPY REPORT (08/29/2024 9:49 AM TRANSMITTER OPERATOR) Narrative Procedure Note Joel Thomas, - 08/29/2024 9:49 AM CST [facility] Endoscopy Patient Name: Krystyna Cao Procedure Date: [...] of Addenda: [address]; [place] [address] Joel Thomas DO GI PROCEDURE ORDERABLES Fin al Result * (ABNORMAL) HEMOGLOBIN A1C (05/10/2024 4:06 PM CDT) HEMOGLOBIN A1C 5.8(H) <5.7 % of total Hgb [facility] Comment: For someone without known diabetes, [...] children. ESTIMATED AVERAGE GLUCOSE (MG/DL) 120 mg/dL [facility] ESTIMATED AVERAGE GLUCOSE (MMOL/L) 6.6 mmol/L [facility] Comment: This test was performed on the Domenica samia c503 platform. Effective 12/20/23, a change in test platforms from the Rain Tie Worker to the Domenica samia c503 may have shifted HbA1c results compared to historical results. Based on laboratory validation testing conducted at [facility], the Domenica platform relative to the Rain [...] recommended. FASTING:NO FASTING: NO Test Performed at: [facility] [place] [address] [address] [place] [address] Marin Nuñez Blood 05/10/2024 4:06 PM CDT 05/10/2024 4:07 PM CDT Cely Mcgraw MD CHEMISTRY ORDERABLES Final Result [facility] [phone] [place] [address] [address] [place] [address] from Last 3 Months or Most Recently Relevant to Health Maintenance Insurance RX [employer] RX Member Subscriber Plan / Payer (Ef fective 2021-Present) Name:Krystyna Cao Relation to Subscriber:Self Name:Krystyna Cao Subscriber ID:Not on file Payer ID:Not on file Group ID:[id number] Type:RX Commercial Address: [place] [address] [facility] [employer] BC OUT OF STATE Advance Directives For more information, please contact: [phone] * Full Code (Latest Code Status on [...] 5:11 AM 06/06/2018 1:55 PM Care Teams Performance Improvement Consultant Relationship Specialty Start Date End Date Cely Mcgraw MD [address] [facility] [address] [place] [id number] PCP - General Internal Medicine 08/11/19
--- OUTSIDE RECORDS SUMMARY | 2025-09-14 02:10 | XMS_ITS | Clinical Summary ---
Author Organization [facility] Address [address] [place] [address] Care Team Providers Care Mule Tender Name Role Phone Unavailable Primary Care Provider Unavailabl e Source Comments [facility],non-owned Affiliates and Associated Physician Practices is amultiple site organization consisting of ambulatory clinics and hospital sitesin [place], [place], [place] and [place]. This disclosure is being madepursuant to the Care Everywhere program and may not contain all information available regarding this patient. Last updated 18.[facility] [employer] Allergies Active Allergy Reactions Criticality Noted Date [...] patient's age to complete [place] [address] VASQUEZ
--- OUTSIDE RECORDS SUMMARY | 2025-09-14 02:11 | XMS_ITS | Patient Health Record ---
Author Organization [facility] Address [address] [place], [place] [id number] Care Team Providers Care Flash Designer Name Role Phone Dave Alexander Unavailable Unavailable [...] Coverage Start Date Coverage End Date R Bush / [facility] [address] [facility] [facility] [id number] KRYSTYNA CAO Self - patient is the insured
[2025-09-14] MEDS: KETOROLAC 30 MG/ML VIAL (*BKC) IM (02:27)
[2025-09-14 02:50] VITALS: BP 138/74; PULSE 71; RESP 20; TEMP 36.4; O2SAT 100
== END 2025-09-14 02:53 | disposition home or self-care (01) ==
LOC: ANHED 09-14 02:09
PROVIDERS: Emergency Provider Student in an Organized Health Care Education/Training Program; PCP Urology
DX: S82.832D Other fracture of upper and lower end of left fibula, subsequent encounter for closed fracture with routine healing (principal); X58.XXXD Exposure to other specified factors, subsequent encounter
CPT/HCPCS: 73590; 96372; 99283; J1885

== ENCOUNTER 2025-09-17 10:12 | Outpatient (CLI) | payer SELFPAY ==
--- NOTE | ~2025-09-17 | US_ITS ---
EXAMINATION: US venous doppler [facility] DATE: 09/17/2025 11:03 INDICATION: Pain and swelling TECHNIQUE: Grayscale ultrasound images without and with compression and Doppler ultrasound images of the left lower extremity veins were obtained. COMPARISON: None. FINDINGS: The visualized portions of left common femoral vein, profunda (deep) femoral vein, femoral vein, popliteal vein, peroneal veins, posterior tibial veins, and greater saphenous vein outflow are patent. IMPRESSION: 1. No deep venous thrombosis seen in the left lower extremity. Reviewed, dictated and finalized at location A. UNT EXECUTIVE
== END 2025-09-17 10:13 | disposition home or self-care (01) ==
PROVIDERS: PCP Urology; Visit Provider Podiatrist Foot & Ankle Surgery
DX: M79.89 Other specified soft tissue disorders (principal)
CPT/HCPCS: 93971

== ENCOUNTER 2025-09-20 01:23 | Day surgery (SDC) | payer BC, SELFPAY ==
--- NOTE | 2025-09-19 18:02 | PC.NURSE ---
[facility] has started construction of its new state of the art ER which will open Spring 2026. With this, we anticipate parking may be a challenge for some our surgical patients and families. Parking spaces are limited but are available for all Surgical, obstetrics, and ER patients sharing this lot. If you arrive and find you are having a hard time finding a parking space, please note that we understand the challenges, please drive around the hospital and park near Hospital Entrance 1. When you enter this entrance, you can ask a volunteer to direct or take you back to the surgical waiting area to check in. We appreciate everyone?s understanding of these expected challenges while we build for your future. Report to the Outpatient Waiting Room, entrance under the green pavilion located off [address], at time 1230 on date 09/20/25. Planned Procedure Time:1430.? Time changes happen often and if your time is changed the preop area will call you the afternoon before. - You and your visitor will be asked to self-screen and do not enter if you have any COVID symptoms. Please call surgeon if you need to reschedule. - A mask is optional within the hospital at this time. Patients may have clear liquids (water, carbonated beverages, clear teas, apple juice) until 3 hours prior to surgery with a maximum of 20 ounces. 1130 - No food from midnight until time of surgery and no smoking, or chewing tobacco (or any form of nicotine). No chewing gum, candy or mints. - Infants may have breast milk until 4 hours before surgery, infant formula 6 hours prior to surgery. - Children will be allowed to drink immediately following surgery.? If applicable, please bring a bottle or sippy cup to assist with drinking. Juice, water, soda, and popsicles are readily available.? For infants on formula, please bring formula the day of surgery.? Pacifiers are allowed. Take only the following medications with a SIP of water on the morning of surgery: fluoxetine DO NOT STOP ANY OF YOUR OTHER PRESCRIPTION MEDICATIONS PRIOR TO SURGERY EXCEPT THE FOLLOWING Hold all vitamins and supplements for 3 days per anesthesiologist. Medications to discontinue per physician advil Date to take last dose 09/19/25 Please no make-up, nail greek, hairspray, perfume, deodorant, or body powder the day of surgery.? No jewelry (including any body piercings) or valuables the day of surgery, leave them at home.? Please take a shower or bath the night before, or the morning of, surgery with an antibacterial soap.? Wear comfortable, loose fitting clothing.? Children are encouraged to wear pajamas. - Jewelry must be removed prior to entering the operating room.? Rings and piercings that are not removed may be cut off. - The hospital will not accept responsibility for valuables.? - Please leave all valuables, including medications, at home the day of surgery. If you are going home after surgery, a licensed shuttle truck driver must drive you home.? - NO public transportation without another adult if you receive anesthesia. - We recommend that an adult stay with you for 24 hours following discharge. - We also recommend that you do not drive, make important decision, drink alcoholic beverages, or take any drugs that were not prescribed by your health care provider for at least 24 hours after your discharge time. For Pediatric surgeries, we recommend two adults accompany the child home. Follow any additional instructions given to you from your surgeon. Telephone instructions given to Patient- Yoseph Taylor and asked if any additional questions and then verbalized understanding. Patient advised to call surgeon office or pre surgery nurse liaison [phone] if any additional questions.
[2025-09-19 18:08] VITALS: BMI 40.8
--- NOTE | ~2025-09-20 | XR_ITS ---
EXAMINATION: XR surgery orthopedic DATE: 09/20/2025 15:37 INDICATION: ORIF left ankle fracture TECHNIQUE: 4 fluoroscopic images of the left ankle were obtained procedure performed by Dr. Fitzpatrick. Radiologist was not present for the imaging or procedure. The amount of fluoroscopy time used during this procedure was 0.2 minutes. The dose area product was 0.0492 Gycm^2. COMPARISON: 09/08/2025 FINDINGS: Interval open reduction internal fixation of the previously noted oblique lateral malleolar fracture which is now fixed with interfragmentary screw and lateral plate and screws. There is also been an associated tightrope type syndesmotic fixation with metallic button along the medial margin of a lucent tunnel extending across the distal tibial metaphysis. Alignment appears near- anatomic with a congruent ankle mortise. Joint spaces are normal. Moderate-sized plantar calcaneal spur. IMPRESSION: 1. Near-anatomic alignment post open reduction internal fixation of a lateral malleolar fractures at the left ankle with associated tightrope type syndesmotic fixation. See procedure note for further detail. Reviewed, dictated and finalized at location A. [facility] IMPRESSION: 1. Near-anatomic alignment post open reduction internal fixation of a lateral m alleolar fractures at the left ankle with associated tightrope type syndesmotic fixation. See procedure note for further detail.
--- NOTE | 2025-09-20 11:45 | WPDHPUPDATE1 ---
History and Physical Update Update Date/Time: 09/20/25 11:45 History and Physical has been reviewed, including an updated exam of the patient. There are NO changes in the patient's condition. Risks, benefits, and alternatives have been discussed and questions answered. Patient agrees to proceed with procedure.
[2025-09-20 12:29] VITALS: BP 131/60; PULSE 70; RESP 18; TEMP 36.7; O2SAT 100
--- NOTE | 2025-09-20 12:30 | SUR.PREOP ---
SPLINT IN PLACE TO LEFT ANKLE/FOOT, NO ORDER FROM MD TO REMOVE
[2025-09-20] MEDS: ACETAMINOPHEN 500 MG TABLET 1000 MG PO (12:40)
[2025-09-20] MEDS: KETOROLAC 15 MG/ML VIAL (*BKC) IV PUSH (12:50)
--- NOTE | 2025-09-20 13:57 | P.PNAN_ITS ---
Anes - Initial Pre Proc Eval Procedure: Operation Date: 09/20/25 14:30 Proposed Procedures p Open Reduction Internal Fixation Left Ankle Fracture - Jose Eduardo Fitzpatrick MD Date/Time: 09/20/25 13:57 Surgeon: Jose Eduardo Fitzpatrick MD Pre Op Diagnosis: lt ankle fx Patient Data Age: 54 Gender: F Height: 1.6 m Weight: 114.3 kg Last Vital Signs Temp 98.1 F 09/20/25 12:29 Pulse 70 09/20/25 12:29 Resp 18 09/20/25 12:29 BP 131/60 09/20/25 12:29 Pulse Ox 100 09/20/25 12:29 O2 Del Method Room Air 09/20/25 12:29 Allergies Allergy/AdvReac Type Severity Reaction Status Date / Time doxycycline Allergy Intermediate Hives Verified 09/20/25 10:56 Home Medications ?Medication ?Instructions ?Recorded ?Confirmed ?Type hydrocodone 5 mg-acetaminophen 325 1 tablet PO Q8H PRN pain #9 tabs 09/14/25 09/20/25 Rx mg tablet fluoxetine 20 mg tablet 20 mg PO DAILY 09/19/2509/03 History ibuprofen 200 mg tablet (Advil) 600 mg PO Q6H 09/19/25 09/20/25 History Patient hx anesthesia problems: none Family hx anesthesia problems: none Results Review: All pre-operative results and documents have been reviewed as part of the pre- operative evaluation. [facility] Surgical History Surgical History (Updated 09/20/25 @ 12:08 by Romina Garvey) History of appendectomy H/O jaw surgery Family History Family History (Updated 09/20/25 @ 12:09 by Romina Garvey) Unknown Hypertension Heart disease Lung disease Social History Social History (Updated 09/20/25 @ 12:10 by Romina Garvey) Smoking packs per day: 1 Smoking cigarettes per day: 20.0 Years smoked: 3 Smoking pack-years: 3.00 Smoking status: Never smoker Alcohol intake: current Alcohol use details: Socially Substance use: never Living arrangements: with family Occupation/Education: occupation 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 Informed Consent: The patient's anesthetic plan and its attendant risks and benefits were discussed with the patient/family/POA. Questions were solicited and answers provided to the satisfaction of the patient/family/POA.
[2025-09-20] MEDS: ceFAZolin 2 GM in SODIUM CHLORIDE 0.9% IV 50 ML 100 ML IVPB (14:35)
[2025-09-20 15:52] VITALS: BP 152/66; PULSE 100; RESP 15; TEMP 36.1; O2SAT 100
[2025-09-20] MEDS: LACTATED RINGERS 1,000 ML 30 ML IV CONT (15:52)
[2025-09-20 16:00] VITALS: BP 147/68; PULSE 84; O2SAT 100
--- NOTE | 2025-09-20 16:03 | W.PM.PROC2 ---
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 At this time she presents for operative treatment Findings Distal fibular fracture, unstable. Syndesmosis disruption with widening of the mortise. Deltoid ligament disruption with medial malleolar avulsion anatomically reduced. Description of Procedure After informed consent, the operative extremity was marked in the preoperative holding area. Patient received intravenous antibiotics. Patient was then taken to the operating room and underwent general anesthesia by the anesthesia team. They were positioned supine on the operating room table. A time-out was performed confirming the patient, site of the surgery, operative plan. Lower extremity then prepped and draped in the usual sterile surgical fashion using ChloraPrep skin solution. Foot and ankle exsanguinated and a thigh tourniquet inflated to 250 mmHg. Longitudinal incision made over the lateral ankle distal fibula with a 15 blade knife. Hemostasis controlled with electrocautery. Full-thickness soft tissue flaps developed and the fascia was incised in line with the skin incision. Fracture identified and cleared with a dental pick, irrigation and rongeur. Fracture reduced and held with bone-holding clamp. Image intensification confirmed reduction of the fracture and the ankle mortise. Fixation achieved with a 3.5 millimeter fully-threaded cortical screw placed in lag technique across the fracture. Neutralization with a lateral plate with unicortical screws distal to fracture and bicortical screws proximal to the fracture. Good alignment and stability of the fracture noted. Image intensification used to confirm reduction of the fracture and placement of the hardware. Stress of the ankle performed disruption of the syndesmosis and widening of the mortise noted with valgus and external rotation stress. Fixation of the syndesmosis indicated. Dissection carried over the dorsum of the fibula to the syndesmosis with 15 blade knife and blunt dissection with a [place] elevator. Syndesmosis was reduced fixation achieved with the Arthrex tight rope placed from lateral to medial. Image intensification confirmed reduction, placement instability. Wound thoroughly irrigated with antibiotic solution. Fascia repaired with 00 Vicryl interrupted suture. Subcutaneous tissue repaired with 000 Monocryl interrupted suture and 0000 nylon running suture. Sterile dressings applied. Patient awoken from anesthesia, extubated and taken to the recovery room in stable condition. All sponge, needle and instrument counts correct at the end of the case. Palpable dorsalis pedis pulse noted prior to dressing. Implants Arthrex distal fibula plate and screws. Arthrex tight rope. Estimated Blood Loss 5 Tourniquet Time Total Tourniquet Time: 45 Drains No Packing No Pathology None sent Complications None Condition Stable Disposition PACU [facility] Billing Surgery - Charge Forward: Surgery Billing ([id number], [id number])
[2025-09-20] MEDS: fentaNYL CITRATE INJ (*CRX) 100 MCG/2 ML VIAL 25 MCG IV PUSH ×4 (16:05→16:29)
[2025-09-20 16:30] VITALS: BP 132/68; PULSE 85; RESP 13; O2SAT 94
[2025-09-20 16:51] VITALS: BP 154/72; PULSE 73; RESP 13
[2025-09-20] MEDS: oxyCODONE HCL (*CRX) 5 MG TAB IR PO (17:03)
[2025-09-20 17:20] VITALS: BP 135/69; PULSE 81; RESP 13
== END 2025-09-20 17:40 | disposition home or self-care (01) ==
PROVIDERS: PCP Urology; Visit Provider Orthopaedic Surgery
PROC: (CPT 27792; principal; 2025-09-20 14:30)
DX: S82.832A Other fracture of upper and lower end of left fibula, initial encounter for closed fracture (principal); S93.432A Sprain of tibiofibular ligament of left ankle, initial encounter; W19.XXXA Unspecified fall, initial encounter; E66.01 Morbid (severe) obesity due to excess calories; Z68.41 Body mass index [BMI] 40.0-44.9, adult
CPT/HCPCS: 27792; 27829; 99199; J0690; A9270; C1713; J1100; J1885; J2003; J2250; J2405; J2704; J3010; J7120